=== PATIENT | female | born 1990 | race American Indian/Alaskan Native ===

== ENCOUNTER 2019-01-11 08:17 | Emergency (ER) | payer SELFPAY ==
[2019-01-11 08:24] VITALS: BP 121/76
[2019-01-11] MEDS ORDERED: KETOROLAC 30 MG/1 ML INJ IV ONE (09:06)
--- NOTE | 2019-01-11 09:14 | Emergency Department Report ---
ED Abdominal Pain HPI - General Chief Complaint: Abdominal Pain Stated Complaint: RT SIDE PAIN/HEADACHE/NO APPETITE Time Seen by Provider: 01/11/19 09:06 Source: patient Mode of arrival: Ambulatory Limitations: No Limitations - History of Present Illness Initial Comments: Patient is a 28-year-old female who presented with 3 days of right flank pain. Patient states initially she thought she may pull something at work however she also started developing nausea vomiting and some mild diarrhea. The patient denies dysuria or urinary frequency or vaginal bleeding or discharge at this time. She states the she has not had a cough "congestion fevers chills neck stiffness or sore throat as well. Patient states the pain is 8 out of 10 in severity at its worst. - Related Data Previous Rx's Medication Instructions Recorded Last Taken Type Nitrofurantoin Riley/M-Cryst 100 mg PO Q12HR #14 capsule 09/19/13 Unknown Rx [Macrobid] Ciprofloxacin HCl [Ciprofloxacin 500 mg PO Q12HR #14 tab 01/11/19 Unknown Rx TAB] Ibuprofen [Motrin 600 MG tab] 600 mg PO Q8H PRN #20 tablet 01/11/19 Unknown Rx traMADol [Ultram] 50 mg PO Q6HR PRN #12 tablet 01/11/19 Unknown Rx Allergies Allergy/AdvReac Type Severity Reaction Status Date / Time Penicillins Allergy Unknown Verified 04/05/13 19:35 ED Review of Systems ROS: Stated complaint: RT SIDE PAIN/HEADACHE/NO APPETITE Other details as noted in HPI Comment: All other systems reviewed and negative ED Past Medical Hx - Past Medical History Previous Medical History?: No Hx Hypertension: No Hx Congestive Heart Failure: No Hx Diabetes: No Hx Deep Vein Thrombosis: No Hx Renal Disease: No Hx Sickle Cell Disease: No Hx Seizures: No Hx Asthma: No Hx COPD: No Hx HIV: No - Surgical History Past Surgical History?: No - Social History Smoking Status: Current Every Day Smoker Substance Use Type: None - Medications Home Medications: Home Medications Medication Instructions Recorded Confirmed Last Taken Type Nitrofurantoin Riley/M-Cryst 100 mg PO Q12HR #14 capsule 09/19/13 Unknown Rx [Macrobid] Ciprofloxacin HCl [Ciprofloxacin 500 mg PO Q12HR #14 tab 01/11/19 Unknown Rx TAB] Ibuprofen [Motrin 600 MG tab] 600 mg PO Q8H PRN #20 tablet 01/11/19 Unknown Rx traMADol [Ultram] 50 mg PO Q6HR PRN #12 tablet 01/11/19 Unknown Rx ED Physical Exam - General Limitations: No Limitations General appearance: alert, in no apparent distress - Head Head exam: Present: atraumatic, normocephalic - Eye Eye exam: Present: normal appearance, PERRL, EOMI - ENT ENT exam: Present: mucous membranes moist - Neck Neck exam: Present: normal inspection - Respiratory Respiratory exam: Present: normal lung sounds bilaterally. Absent: respiratory distress, wheezes, rales, rhonchi - Cardiovascular Cardiovascular Exam: Present: regular rate, normal rhythm, normal heart sounds. Absent: systolic murmur, diastolic murmur, rubs, gallop - GI/Abdominal GI/Abdominal exam: Present: soft, tenderness, normal bowel sounds. Absent: distended, guarding, rebound, rigid (R flank), pulsatile mass - Extremities Exam Extremities exam: Present: normal inspection - Back Exam Back exam: Present: normal inspection, CVA tenderness (R) - Neurological Exam Neurological exam: Present: alert, oriented X3, CN II-XII intact, normal gait - Psychiatric Psychiatric exam: Present: normal affect, normal mood - Skin Skin exam: Present: warm, dry, intact, normal color. Absent: rash ED Course Vital Signs 01/11/19 08:20 Temperature 98.5 F Pulse Rate 104 H Respiratory 16 Rate Blood Pressure 121/76 O2 Sat by Pulse 97 Oximetry ED Medical Decision Making - Lab Data Result diagrams: 01/11/19 09:27 01/11/19 09:27 - Radiology Data CT ABDOMEN AND PELVIS WITHOUT CONTRAST INDICATION / CLINICAL INFORMATION: right flank pain with NV. TECHNIQUE: Axial CT images were obtained through the abdomen and pelvis without IV contrast. All CT scans at this location are performed using CT dose reduction for ALARA by means of automated exposure control. EVANGELIST RISON: None available. FINDINGS: LOWER CHEST: No significant abnormality. LIVER: No significant abnormality. GALLBLADDER: No significant abnormality. BILE DUCTS: No significant abnormality. PANCREAS: No significant abnormality. SPLEEN: No significant abnormality. ADRENALS: No significant abnormality. RIGHT KIDNEY and URETER: Although subtle given the lack of IV contrast the right kidney appears slightly enlarged with respect to the left and there may be some slight perinephric inflammation. No definite hydronephrosis appreciated.. LEFT KIDNEY and URETER: No significant abnormality. STOMACH and SMALL BOWEL: No significant abnormality. COLON: No significant abnormality. APPENDIX: No significant abnormality. PERITONEUM: No free fluid. No free air. No fluid collection. LYMPH NODES: No significant adenopathy. AORTA and ARTERIES: No significant abnormality. IVC and VEINS: No significant abnormality. URINARY BLADDER: No significant abnormality. REPRODUCTIVE ORGANS: No significant abnormality. ADDITIONAL FINDINGS: None. SKELETAL SYSTEM: No significant abnormality. IMPRESSION: Suspect mildly enlarged right kidney with respect to the left with slight perinephric stranding. This is ultimately nonspecific but underlying infection cannot be excluded. If there is strong clinical concern for py elonephritis or possible underlying abscess a CT of the abdomen and pelvis with IV contrast is suggested for further evaluation. Signer Name: Cisco Hammer MD Signed: 01/11/2019 10:42 AM Workstation Name: [id number] - Medical Decision Making Patient is a [id number] female presented with right flank and CVA tenderness. The patient's CT shows that the patient does have some hydronephrosis out of his nose obstructive uropathy present at this time. Jono degroot also has 4+ bacteria in the urine. Patient likely had a missed kidney stone is passed and she is likely decompressing at this time. Infection cannot be fully ruled out. Patient to be started on Cipro to cover for early pyelonephritis and patient also given meds for symptomatic relief and she'll be discharged home. Critical care attestation.: If time is entered above; I have spent that time in minutes in the direct care of this critically ill patient, excluding procedure time. ED Disposition Clinical Impression: Pyuria Hydronephrosis Qualifiers: Hydronephrosis type: unspecified Qualified Code(s): N13.30 - Unspecified hydronephrosis Hematuria Qualifiers: Hematuria type: unspecified type Qualified Code(s): R31.9 - Hematuria, unspecified Disposition: DC-01 TO HOME OR SELFCARE Is pt being admited?: No Does the pt Need Aspirin: No Condition: Stable Instructions: Acute Hematuria (ED), Acute Pyelonephritis (ED), Flank Pain (ED) Referrals: PRIMARY CAREMD [Primary Care Provider] - 3-5 Days SERGIO APODACA MD [Staff Physician] - 3-5 Days Time of Disposition: 11:22
[2019-01-11 09:58] LABS: Basophils % (Auto) 0.4 % (0.0-1.8); Eosinophils % (Auto) 0.5 % (0.0-4.3); Hematocrit 43.3 % (30.3-42.9); Hemoglobin 14.6 gm/dl (10.1-14.3); Lymphocytes # (Auto) 1.1 K/mm3 (1.2-5.4); Lymphocytes % (Auto) 13.1 % (13.4-35.0); Mean Corpuscular HGB Conc 34 % (30-34); Mean Corpuscular Volume 102 fl (79-97); Monocytes # (Auto) 1.3 K/mm3 (0.0-0.8); Monocytes % (Auto) 15.5 % (0.0-7.3); Platelet Count 191 K/mm3 (140-440); Red Blood Count 4.24 M/mm3 (3.65-5.03); Red Cell Distribution Width 13.1 % (13.2-15.2)
[2019-01-11 10:18] LABS: Alanine Aminotransferase 20 units/L (7-56); BUN/Creatinine Ratio 18; Blood Urea Nitrogen 11 mg/dL (7-17); Calcium 9.3 mg/dL (8.4-10.2); Hemolysis Index 27
[2019-01-11 10:40] LABS: Bacteria,Urine 4+ /HPF (Negative); Bilirubin,Urine NEG (Negative); Blood,Urine MOD (Negative); Color,Urine Yellow (Yellow); Mucus,Urine 2+ /HPF
--- NOTE | 2019-01-11 10:46 | Cat Scan Report ---
CT ABDOMEN AND PELVIS WITHOUT CONTRAST INDICATION / CLINICAL INFORMATION: right flank pain with NV. TECHNIQUE: Axial CT images were obtained through the abdomen and pelvis without IV contrast. All CT scans at [facility] location are performed using CT dose reduction for ALARA by means of automated exposure control. COMPARISON: None available. FINDINGS: LOWER CHEST: No significant abnormality. LIVER: No significant abnormality. GALLBLADDER: No significant abnormality. BILE DUCTS: No significant abnormality. PANCREAS: No significant abnormality. SPLEEN: No significant abnormality. ADRENALS: No significant abnormality. RIGHT KIDNEY and URETER: Although subtle given the lack of IV contrast the right kidney appears sligh tly enlarged with respect to the left and there may be some slight perinephric inflammation. No defin ite hydronephrosis appreciated.. LEFT KIDNEY and URETER: No significant abnormality. STOMACH and SMALL BOWEL: No significant abnormality. COLON: No significant abnormality. APPENDIX: No significant abnormality. PERITONEUM: No free fluid. No free air. No fluid collection. LYMPH NODES: No significant adenopathy. AORTA and ARTERIES: No significant abnormality. IVC and VEINS: No significant abnormality. URINARY BLADDER: No significant abnormality. REPRODUCTIVE ORGANS: No significant abnormality. ADDITIONAL FINDINGS: None. SKELETAL SYSTEM: No significant abnormality. IMPRESSION: Suspect mildly enlarged right kidney with respect to the left with slight perinephric stranding. This is ultimately nonspecific but underlying infection cannot be excluded. If there is strong clinical c oncern for pyelonephritis or possible underlying abscess a CT of the abdomen and pelvis with IV contr ast is suggested for further evaluation. Signer Name: Cisco Hammer MD Signed: 01/11/2019 10:42 AM Workstation Name: [id number]
== END 2019-01-11 11:52 | disposition home or self-care (01) ==
LOC: ED 08:17
DX: N13.30 Unspecified hydronephrosis (principal); R31.9 Hematuria, unspecified; F17.200 Nicotine dependence, unspecified, uncomplicated; Z79.1 Long term (current) use of non-steroidal anti-inflammatories (NSAID); Z79.899 Other long term (current) drug therapy; Z88.0 Allergy status to penicillin
CPT/HCPCS: 36415; 74176; 80053; 81001; 84703; 85025; 87086; 87186; 96374; 99284; J1885

== ENCOUNTER 2019-09-18 12:57 | Emergency (ER) | payer MEDICAID ==
--- NOTE | 2019-09-18 17:25 | XRay Report ---
RIGHT LITTLE FINGER ONE VIEW INDICATION / CLINICAL INFORMATION: Right little finger laceration. Evaluate for bone involvement. COMPARISON: None available. FINDINGS: Lack of multiple views of the little finger limits this study. BONES and JOINT(S): No acute fracture or subluxation. No significant arthritis. SOFT TISSUES: A laceration is seen medially along the little finger at the level of the PIP joint. No additional significant abnormality. ADDITIONAL FINDINGS: None. IMPRESSION: Right little finger laceration without an acute osseous abnormality. Signer Name: Adonis Toney MD Signed: 09/18/2019 5:21 PM Workstation Name: [id number]
[2019-09-18 17:39] VITALS: BP 119/72
--- NOTE | 2019-09-18 17:39 | Emergency Department Report ---
ED Laceration HPI - HPI Chief Complaint: Extremity Injury, Upper Stated Complaint: RIGHT FINGER Time Seen by Provider: 09/18/19 16:57 Occurred When: Today Location: Upper Extremity Severity: mild Tetanus Status: Up to Date Laceration Symptoms: Yes Pain, No Foreign Body Sensation, No Numbness, No Weakness Other History: This is a 29-year-old female nontoxic, well nourished in appearance, no acute signs of distress presents to the ED with c/o of right 5th finger lac s/p cut by a knife. Patient is 36 weeks and stated had her tetanus shot UTD. Patient denies decreased sensation or range of motion. Patient stated bleeding is under control. Denies any numbness, tingling, fever, chills, nausea, vomiting, chest pain, shortness of breath, headache or stiff neck. Patient allergis to [facility] but denies any significant past medical history. ED Review of Systems ROS: Stated complaint: RIGHT FINGER Other details as noted in HPI Constitutional: denies: chills, fever Eyes: denies: eye pain, eye discharge, vision change ENT: denies: ear pain, throat pain Respiratory: denies: cough, shortness of breath, wheezing Cardiovascular: denies: chest pain, palpitations Endocrine: no symptoms reported Gastrointestinal: denies: abdominal pain, nausea, diarrhea Genitourinary: denies: urgency, dysuria, discharge Musculoskeletal: denies: back pain, joint swelling, arthralgia Skin: denies: rash, lesions Neurological: denies: headache, weakness, paresthesias Psychiatric: denies: anxiety, depression Hematological/Lymphatic: denies: easy bleeding, easy bruising ED Past Medical Hx - Past Medical History Previous Medical History?: Yes Hx Hypertension: No Hx Congestive Heart Failure: No Hx Diabetes: No Hx Deep Vein Thrombosis: No Hx Renal Disease: No Hx Sickle Cell Disease: No Hx Seizures: No Hx Asthma: No Hx COPD: No Hx HIV: No Additional medical history: Vaginal delivery x 2 - Surgical History Past Surgical History?: No - Social History Smoking Status: Never Smoker Substance Use Type: None - Medications Home Medications: Home Medications Medication Instructions Recorded Confirmed Last Taken Type Vit-Fe Fumar-FA [ 1 tab PO QDAY 08/09/19 08/09/19 08/08/19 20:00 History Vitamin] Clindamycin [Clindamycin CAP] 300 mg PO Q8H #21 cap 09/18/19 Unknown Rx Laceration Physical Exam - Exam General: Vital signs noted. No distress. Alert and acting appropriately. Wound Length (cm): 1 Laceration Location: Upper Extremity Laceration Exam: Yes Normal Distal CMS, No Foreign Body, No Exposed Tendon, Vessel, or Nerve, No Tendon Injury ED Course Vital Signs 09/18/19 13:21 Temperature 98.5 F Pulse Rate 114 H Respiratory 18 Rate Blood Pressure 119/72 O2 Sat by Pulse 97 Oximetry - Reevaluation(s) Reevaluation #1: 09/18/19 17:38 Patient is speaking in full sentences with no signs of distress noted. - Laceration /Wound Repair Right Finger Wound Location: upper extremity Wound Length (cm): 1 Wound's Depth, Shape: superficial Betadine Prep?: Yes Anesthesia: 1% Lidocaine Volume Anesthetic (ccs): 3 Wound Repaired With: sutures Suture Size/Type: 5:0, nylon Number of Sutures: 3 Layer Closure?: No Sterile Dressing Applied?: Yes Progress: Under sterile field, I used Betadine to clean the area. I then used 40 mL of normal saline to flush the area. I then used 1% lidocaine plain and injected 3 mL to the wound. I then used a 5-0 Nylon to suture the laceration. Number of stitches 3. I then applied a sterile 4 x 4 with tape. Minimal bleeding noted but is under control. Patient tolerated procedure well with no signs of distress. ED Medical Decision Making - Radiology Data RIGHT LITTLE FINGER ONE VIEW INDICATION / CLINICAL INFORMATION: Right little finger laceration. Evaluate for bone involvement. COMPARISON: None available. FINDINGS: Lack of multiple views of the little finger limits this study. BONES and JOINT(S): No acute fracture or subluxation. No significant arthritis. SOFT TISSUES: A laceration is seen medially along the little finger at the level of the PIP joint. No additional significant abnormality. ADDITIONAL FINDINGS: None. IMPRESSION: Right little finger laceration without an acute osseous abnormality. Signer Name: Adonis Toney MD Signed: 09/18/2019 4:21 PM Workstation Name: [id number] - Medical Decision Making This is a 29-year-old male that presents with laceration. Patient is stable and was examined by me. The laceration suturing has been performed and has been performed and patient tolerated well. A sterile dressing has been applied. Patient was educated on proper wound care. Patient is discharged with augmentin . Patient was instructed to return in 10 days for suture removal. Patient was instructed to refer to Follow-up with a primary care doctor in 3-5 days or if symptoms worsen and continue return to emergency room as soon as possible. At time of discharge, the patient does not seem toxic or ill in appearance. No acute signs of distress noted. Patient agrees to discharge treatment plan of care. No further questions noted by the patient. Critical care attestation.: If time is entered above; I have spent that time in minutes in the direct care of this critically ill patient, excluding procedure time. ED Disposition Clinical Impression: Laceration Disposition: DC-01 TO HOME OR SELFCARE Is pt being admited?: No Does the pt Need Aspirin: No Condition: Stable Instructions: Suture Care (ED), Laceration (ED) Additional Instructions: Follow-up with a primary care doctor in 3-5 days or if symptoms worsen and continue return to emergency room as soon as possible. Return in 10 days for suture removal. Prescriptions: Clindamycin [Clindamycin CAP] 300 mg PO Q8H #21 cap Referrals: WINTER CROCKER MD [Primary Care Provider] - 3-5 Days DRE BAUMANN MD [Staff Physician] - 3-5 Days Forms: Work/School Release Form(ED)
== END 2019-09-18 18:24 | disposition home or self-care (01) ==
LOC: ED 12:57
DX: S61.216A Laceration without foreign body of right little finger without damage to nail, initial encounter (principal); W26.0XXA Contact with knife, initial encounter; Y93.89 Activity, other specified; Y92.89 Other specified places as the place of occurrence of the external cause; Y99.8 Other external cause status
CPT/HCPCS: 99283

== ENCOUNTER 2020-08-28 11:39 | Emergency (ER) | payer MEDICAID ==
[2020-08-28 12:00] VITALS: BP 113/66
--- NOTE | 2020-08-28 13:17 | Emergency Department Report ---
ED General Adult HPI - General Chief complaint: Allergic Reaction Stated complaint: ALLERGIC REACTION Time Seen by Provider: 08/28/20 13:00 Source: patient Mode of arrival: Ambulatory Limitations: No Limitations - History of Present Illness Initial comments: 30-year-old -[place] female patient with history of pulmonary hypertension presents with complaints of possible allergic reaction to medication x2 days. Patient states she was started on Ambrisentan 2 weeks ago, however 2 days ago she increased her dose as directed by her doctor and she began to break out in itchy rash on her arms and face. She denies any dysphagia, chest pain, shortness of breath, or wheezing. She has not tried any OTC medications for her symptoms. She reports she did speak with her doctor's office who advised that she discontinue the Ambrisentan. -: Sudden - Related Data Home Medications Medication Instructions Recorded Confirmed Last Taken Vit-Fe Fumar-FA [ 1 tab PO QDAY 08/09/19 08/09/19 08/08/19 20:00 Vitamin] Previous Rx's Medication Instructions Recorded Last Taken Type Clindamycin [Clindamycin CAP] 300 mg PO Q8H #21 cap 09/18/19 Unknown Rx Loratadine 10 mg PO QDAY #10 tablet 08/28/20 Unknown Rx Prednisone [predniSONE 10 mg 10 mg PO .TAPER #1 tab.ds.pk 08/28/20 Unknown Rx (6-Day Pack, 21 Tabs)] Triamcinolone Acetonide 1 gm TP TID PRN 7 Days #2 oint...g. 08/28/20 Unknown Rx Allergies Allergy/AdvReac Type Severity Reaction Status Date / Time Penicillins Allergy Unknown Verified 04/05/13 19:35 ED Review of Systems ROS: Stated complaint: ALLERGIC REACTION Other details as noted in HPI Constitutional: denies: chills, fever, malaise ENT: denies: throat pain Respiratory: denies: cough, shortness of breath Cardiovascular: denies: chest pain Skin: rash, pruritus ED Past Medical Hx - Past Medical History Previous Medical History?: No Hx Hypertension: No Hx Congestive Heart Failure: No Hx Diabetes: No Hx Deep Vein Thrombosis: No Hx Renal Disease: No Hx Sickle Cell Disease: No Hx Seizures: No Hx Asthma: No Hx COPD: No Hx HIV: No Additional medical history: Vaginal delivery x 2 - Surgical History Past Surgical History?: No - Social History Smoking Status: Never Smoker Substance Use Type: None - Medications Home Medications: Home Medications Medication Instructions Recorded Confirmed Last Taken Type Vit-Fe Fumar-FA [ 1 tab PO QDAY 08/09/19 08/09/19 08/08/19 20:00 History Vitamin] Clindamycin [Clindamycin CAP] 300 mg PO Q8H #21 cap 09/18/19 Unknown Rx Loratadine 10 mg PO QDAY #10 tablet 08/28/20 Unknown Rx Prednisone [predniSONE 10 mg 10 mg PO .TAPER #1 tab.ds.pk 08/28/20 Unknown Rx (6-Day Pack, 21 Tabs)] Triamcinolone Acetonide 1 gm TP TID PRN 7 Days #2 oint...g. 08/28/20 Unknown Rx ED Physical Exam - General Limitations: No Limitations General appearance: alert, in no apparent distress - Head Head exam: Present: atraumatic, normocephalic - Eye Eye exam: Present: normal appearance - Respiratory Respiratory exam: Absent: respiratory distress - Cardiovascular Cardiovascular Exam: Present: regular rate, normal rhythm. Absent: systolic murmur, diastolic murmur, rubs, gallop - Neurological Exam Neurological exam: Present: alert, oriented X3, normal gait - Psychiatric Psychiatric exam: Present: normal affect, normal mood - Skin Skin exam: Present: warm, dry, intact, normal color, rash (Diffuse papular urticarial rash noted bilaterally to arms and on face without any angioedema noted or signs of cellulitis or drainage) ED Course Vital Signs 08/28/20 11:59 Temperature 99.0 F Pulse Rate 81 Respiratory 20 Rate Blood Pressure 113/66 O2 Sat by Pulse 98 Oximetry ED Medical Decision Making - Medical Decision Making 30-year-old -[place] female patient with history of pulmonary hypertension presents with complaints of possible allergic reaction to medication x2 days. Patient states she was started on Ambrisentan 2 weeks ago, however 2 days ago she increased her dose as directed by her doctor and she began to break out in itchy rash on her arms and face. She denies any dysphagia, chest pain, shortness of breath, or wheezing. She has not tried any OTC medications for her symptoms. She reports she did speak with her doctor's office who advised that she discontinue the Ambrisentan. She denies any hotel stays or contact with others with similar symptoms. We will treat for drug reaction with prednisone. Recommend follow-up with her doctor treating her PAH within 2 days. Discussed signs and symptoms that should prompt immediate return to the emergency department in detail with patient who verbalized understanding. Her vitals are normal, she is well-appearing, she is stable for discharge home. Critical care attestation.: If time is entered above; I have spent that time in minutes in the direct care of this critically ill patient, excluding procedure time. ED Disposition Clinical Impression: Allergic reaction to drug Disposition: DC-01 TO HOME OR SELFCARE Is pt being admited?: No Condition: Stable Instructions: Drug Rash Prescriptions: Loratadine 10 mg PO QDAY #10 tablet Prednisone [predniSONE 10 mg (6-Day Pack, 21 Tabs)] 10 mg PO .TAPER #1 tab.ds.pk Triamcinolone Acetonide 1 gm TP TID PRN 7 Days #2 oint...g. PRN Reason: Itching
== END 2020-08-28 14:09 | disposition home or self-care (01) ==
LOC: ED 11:39
DX: R21 Rash and other nonspecific skin eruption (principal); T46.5X5A Adverse effect of other antihypertensive drugs, initial encounter; Z79.2 Long term (current) use of antibiotics; Z79.899 Other long term (current) drug therapy; Z88.0 Allergy status to penicillin; Y92.89 Other specified places as the place of occurrence of the external cause
CPT/HCPCS: 99282

== ENCOUNTER 2021-10-04 08:05 | Emergency (ER) | payer MEDICAID ==
[2021-10-04 11:49] LABS: Bacteria,Urine 2+ /HPF (Negative); Mucus,Urine 3+ /HPF
[2021-10-04 11:53] LABS: Bilirubin,Urine Negative (Negative); Color,Urine Yellow (Yellow)
[2021-10-04 11:54] LABS: Blood,Urine Negative (Negative); HCG Qualitative,Urine Negative (Negative)
--- NOTE | 2021-10-04 12:24 | Emergency Department Report ---
ED Female HPI - General Chief complaint: Urogenital-Female Stated complaint: STOMACH PAIN/URINATION PAIN Time Seen by Provider: 10/04/21 10:11 Source: patient Mode of arrival: Ambulatory Limitations: No Limitations - History of Present Illness Initial comments: 31-year-old black female with a past medical history of pulmonary artery hypertension presents to the emergency department for evaluation of few day history of lower abdominal pain and dysuria. She denies fever, nausea, vomiting, diarrhea, and vaginal discharge. She states that pain is worse is about 6 or 7 out of 10. MD Complaint: dysuria -: Gradual, days(s) (3-4) Location: suprapubic, LLQ, RLQ Radiation: non-radiating Severity: moderate Severity scale (0 -10): 7 Quality: cramping, burning Consistency: intermittent Worsens with: urination Are you Now?: No Last Menstrual Period: 09/12/21 EDC: 06/19/22 Associated Symptoms: abdominal pain, dysuria. denies: vaginal discharge, vaginal bleeding, nausea/vomiting, fever/chills, headaches, loss of appetite, hematuria, rash, seizure, shortness of breath - Related Data Sexually active: Yes Home Medications Medication Instructions Recorded Confirmed Last Taken Vit-Fe Fumar-FA [ 1 tab PO QDAY 08/09/19 08/09/19 08/08/19 20:00 Vitamin] Previous Rx's Medication Instructions Recorded Last Taken Type Clindamycin [Clindamycin CAP] 300 mg PO Q8H #21 cap 09/18/19 Unknown Rx Loratadine 10 mg PO QDAY #10 tablet 08/28/20 Unknown Rx Prednisone [predniSONE 10 mg 10 mg PO .TAPER #1 tab.ds.pk 08/28/20 Unknown Rx (6-Day Pack, 21 Tabs)] Triamcinolone Acetonide 1 gm TP TID PRN 7 Days #2 oint...g. 08/28/20 Unknown Rx Ciprofloxacin HCl 500 mg PO BID 5 Days #10 tab 10/04/21 Unknown Rx Allergies Allergy/AdvReac Type Severity Reaction Status Date / Time Penicillins Allergy Unknown Verified 04/05/13 19:35 ED Review of Systems ROS: Stated complaint: STOMACH PAIN/URINATION PAIN Other details as noted in HPI Comment: All other systems reviewed and negative Constitutional: denies: chills, fever, malaise, weakness Respiratory: denies: shortness of breath Cardiovascular: denies: chest pain, palpitations Gastrointestinal: abdominal pain. denies: nausea, vomiting, diarrhea, hematemesis, melena, hematochezia Genitourinary: dysuria. denies: urgency, frequency, hematuria, discharge, abnormal menses, dyspareunia Musculoskeletal: denies: back pain Neurological: denies: headache, weakness ED Past Medical Hx - Past Medical History Hx Hypertension: No Hx Congestive Heart Failure: No Hx Diabetes: No Hx Deep Vein Thrombosis: No Hx Renal Disease: No Hx Sickle Cell Disease: No Hx Seizures: No Hx Asthma: No Hx COPD: No Hx HIV: No Additional medical history: Vaginal delivery x 2 - Social History Smoking Status: Never Smoker Substance Use Type: None - Medications Home Medications: Home Medications Medication Instructions Recorded Confirmed Last Taken Type Vit-Fe Fumar-FA [ 1 tab PO QDAY 08/09/19 08/09/19 08/08/19 20:00 History Vitamin] Clindamycin [Clindamycin CAP] 300 mg PO Q8H #21 cap 09/18/19 Unknown Rx Loratadine 10 mg PO QDAY #10 tablet 08/28/20 Unknown Rx Prednisone [predniSONE 10 mg 10 mg PO .TAPER #1 tab.ds.pk 08/28/20 Unknown Rx (6-Day Pack, 21 Tabs)] Triamcinolone Acetonide 1 gm TP TID PRN 7 Days #2 oint...g. 08/28/20 Unknown Rx Ciprofloxacin HCl 500 mg PO BID 5 Days #10 tab 10/04/21 Unknown Rx ED Physical Exam - General Limitations: No Limitations General appearance: alert, in no apparent distress - Head Head exam: Present: atraumatic, normocephalic - Eye Eye exam: Present: normal appearance. Absent: conjunctival injection - Neck Neck exam: Present: normal inspection, full ROM. Absent: tenderness, lymphadenopathy - Respiratory Respiratory exam: Present: normal lung sounds bilaterally. Absent: respiratory distress, wheezes, rales, rhonchi, stridor, chest wall tenderness - Cardiovascular Cardiovascular Exam: Present: bradycardia, normal heart sounds - GI/Abdominal GI/Abdominal exam: Present: soft, normal bowel sounds. Absent: distended, tenderness, guarding, rebound, rigid - Extremities Exam Extremities exam: Present: normal inspection, normal capillary refill. Absent: pedal edema, joint swelling, calf tenderness - Back Exam Back exam: Present: normal inspection. Absent: tenderness, CVA tenderness (R), CVA tenderness (L), vertebral tenderness - Neurological Exam Neurological exam: Present: alert, oriented X3, normal gait - Psychiatric Psychiatric exam: Present: normal affect, normal mood - Skin Skin exam: Present: warm, dry, intact, normal color ED Course Vital Signs 10/04/21 10/04/21 08:37 12:49 Temperature 98.7 F 98.5 F Pulse Rate 54 L 88 Respiratory 18 16 Rate Blood Pressure 144/94 138/78 [Left] O2 Sat by Pulse 99 100 Oximetry ED Medical Decision Making - Medical Decision Making 31-year-old black female with a past medical history of pulmonary artery hypertension presents to the emergency department for evaluation of few day history of lower abdominal pain and dysuria. She denies fever, nausea, vomiting, diarrhea, and vaginal discharge. She states that pain is worse is about 6 or 7 out of 10. Physical exam unremarkable. Urine positive for urinary tract infection and negative for . Patient will be discharged home with 5-day course of Cipro 500 mg p.o. twice daily to take as directed. She is advised to increase intake of noncaffeinated fluids and follow-up with her primary care provider if no improvement or worsening symptoms. She is advised to return to the emergency department if she develops fever, worsening pain, or any concerning symptoms. She verbalizes understanding of and agreement with plan of care. Laboratory Results - last 24 hr 10/04/21 10:44 Urine Color Yellow Urine Turbidity Clear Urine pH 6.0 Ur Specific Mallie 1.020 Urine Protein 30 mg/dl Urine Glucose (UA) Negative Urine Ketones Negative Urine Blood Negative Urine Nitrite Positive Ur Reducing Substances Not Reportable Urine Bilirubin Negative Urine Ictotest Not Reportable Urine Urobilinogen 0.0 Ur Leukocyte Esterase Negative Urine WBC (Auto) 34.0 H Urine RBC (Auto) 35.0 U Epithel Cells (Auto) 57.0 H Urine Bacteria (Auto) 2+ Urine Mucus 3+ Urine Yeast (Budding) Few Urine HCG, Qual Negative Critical care attestation.: If time is entered above; I have spent that time in minutes in the direct care of this critically ill patient, excluding procedure time. ED Disposition Clinical Impression: UTI (urinary tract infection) Qualifiers: Urinary tract infection type: acute cystitis Hematuria presence: with hematuria Qualified Code(s): N30.01 - Acute cystitis with hematuria Disposition: HOME / SELF CARE / HOMELESS Is pt being admited?: No Does the pt Need Aspirin: No Condition: Stable Instructions: Antibiotic Medicine, Adult, [id number], Urinary Tract Infection, Adult, [id number] Additional Instructions: Take medications as prescribed. Increase intake of noncaffeinated fluids. Follow-up with primary care provider if no improvement or worsening symptoms. Return to the emergency department as needed. Prescriptions: Ciprofloxacin HCl 500 mg PO BID 5 Days #10 tab Referrals: DRE BAUMANN MD [Staff Physician] - 3-5 Days Forms: Work/School Release Form(ED) Time of Disposition: 12:24
[2021-10-04 12:52] VITALS: BP 138/78
== END 2021-10-04 13:01 | disposition home or self-care (01) ==
LOC: ED 08:05
DX: N39.0 Urinary tract infection, site not specified (principal); Z88.0 Allergy status to penicillin
CPT/HCPCS: 81001; 81025; 87076; 87086; 87186; 99283